=== PATIENT | female | born 1965 | race American Indian/Alaskan Native ===

== ENCOUNTER 2017-01-22 09:38 | Outpatient (CLI) | payer OTHER | END 2017-01-22 09:39 | disposition home or self-care (01) | LOC: LABHHL 09:38 | PROVIDERS: ATTEND Surgery | DX: N60.91 Unspecified benign mammary dysplasia of right breast (principal); N63 Unspecified lump in breast; R92.0 Mammographic microcalcification found on diagnostic imaging of breast | CPT/HCPCS: 88305; 88341; 88342 ==

== ENCOUNTER 2017-02-17 06:26 | Day surgery (SDC) | payer OTHER ==
[~2017-02-17 06:26] MED LIST: ANCEF/STERILE WATER 2 GM/20 ML 2 GM/20 ML SYRINGE IV NR; ANCEF/STERILE WATER 2 GM/20 ML IV NR; MARCAINE 0.25% INFILTRATI ONE; WATER FOR IRRIG STERILE IR ONE; XYLOCAINE 1% 20 mL INFILTRATI ONE
[2017-02-17] MEDS ORDERED: XYLOCAINE 1% 20 mL ONE ×2 (07:37→12:30)
--- NOTE | 2017-02-17 07:58 | Anesthesia Day of Surgery ---
Anesthesia Day of Surgery - Day of Surgery Patient Examined: Yes Patient H&P Reviewed: Yes Patient is NPO: Yes
--- NOTE | 2017-02-17 07:59 | Anesthesia Consultation ---
Anesthesia Consult and Med Hx Date of service: 02/17/17 - Airway Anesthetic Teeth Evaluation: Good ROM Head & Neck: Adequate Mental/Hyoid Distance: Adequate Mallampati Class: Class II Intubation Access Assessment: Probably Good - Pulmonary Exam CTA: Yes - Cardiac Exam Cardiac Exam: RRR - Pre-Operative Health Status ASA Pre-Surgery Classification: ASA2 Proposed Anesthetic Plan: MAC - Pulmonary Hx Smoking: Yes (1pk/week x 30yrs) - Cardiovascular System Hx Hypertension: Yes (PCP PUT ON MEDICATION 02/09/17; NEW DIAGNOSIS) - Central Nervous System Hx Back Pain: Yes Hx Psychiatric Problems: No - Other Systems Hx Alcohol Use: Yes (OCCASIONALLY) Hx Substance Use: No Hx Cancer: Yes
[2017-02-17] MEDS ORDERED: LACTATED RINGERS 1,000 ML IV SCH (08:00)
[2017-02-17] MEDS ORDERED: DILAUDID IV PRN (08:50)
[2017-02-17] MEDS ORDERED: VERSED IV NR (09:00)
[2017-02-17] MEDS ORDERED: PEPCID PO NR (09:00)
--- NOTE | 2017-02-17 09:11 | Mammography Report ---
Right breast the localization procedure. Procedure: The patient's prior images were reviewed. The biopsy clip placed at the time of stereotactic biopsy is discordant position related to the previously described calcifications. The skin surface was cleaned with Betadine and local anesthetic was injected in the skin. Using mammographic guidance Based on the location of increased radiodensity at the site of the previous microcalcifications, 7.5 cm Claros needle was placed into the breast. There appears to be a couple of very faint microcalcifications at this site. The hookwire was left in place at the site of the calcifications. The patient for the procedure well clinically and was sent to the OR in satisfactory condition.
[2017-02-17] MEDS ORDERED: ZOFRAN IV PRN ×2 (10:00→15:00)
[2017-02-17] MEDS ORDERED: SUBLIMAZE ONE (12:16)
[2017-02-17] MEDS ORDERED: XYLOCAINE MPF 2% ONE (12:16)
[2017-02-17] MEDS ORDERED: DIPRIVAN 10 MG/ML IV ONE (12:17)
[2017-02-17] MEDS ORDERED: MARCAINE 0.25% INFILTRATI ONE ×2 (12:31→13:14)
[2017-02-17] MEDS ORDERED: LACTATED RINGERS 1,000 ML ONE (13:09)
[2017-02-17] MEDS ORDERED: WATER FOR IRRIG STERILE IR ONE (13:14)
[2017-02-17] MEDS ORDERED: XYLOCAINE 1% 20 mL INFILTRATI ONE (13:14)
[2017-02-17] MEDS ORDERED: DECADRON ONE (13:38)
[2017-02-17] MEDS ORDERED: ZOFRAN ONE (13:38)
[2017-02-17] MEDS ORDERED: ePHEDrine SULFATE ONE (13:42)
--- NOTE | 2017-02-17 14:19 | Mammography Report ---
Specimen radiograph. Findings: A single specimen radiograph was obtained. The original biopsy clip at the time of stereotactic biopsy had migrated and thus is not seen, as expected. It appears that the area of interest is included within the specimen. No definite calcifications are identified.
--- NOTE | 2017-02-17 14:25 | Short Stay Summary ---
Short Stay Documentation Date of service: 02/17/17 - History H&P: obtained from office - Allergies and Medications Current Medications: Allergies hydrocodone Adverse Reaction (Verified 02/11/17 12:50) Swelling Home Medications Medication Instructions Recorded Confirmed Last Taken Type Gabapentin [Neurontin] 100 mg PO QHS PRN 02/11/17 02/17/17 02/16/17 23:00 History Naproxen [Naproxen TAB] 250 mg PO PRN PRN 02/11/17 02/17/17 02/12/17 23:00 History amLODIPine [Norvasc] 5 mg PO DAILY 02/11/17 02/17/17 02/17/17 04:30 History Ibuprofen [Motrin 800 MG tab] 800 mg PO Q8HR PRN #30 tablet 02/17/17 Unknown Rx Active Medications Hydromorphone HCl (Dilaudid) 0.5 mg IV Q10MIN PRN PRN Reason: Pain , Severe (7-10) Stop: 02/20/17 14:18 Cefazolin Sodium (Ancef/Sterile Water 2 Gm/20 Ml) 2 gm in 20 mls @ 80 mls/hr IV PREOP NR PRN Reason: Protocol Stop: 02/17/17 21:00 Lactated Ringer's (Lactated Ringers) 1,000 mls @ 75 mls/hr IV DIRECT LULA Last Admin: 02/17/17 09:21 Dose: 75 mls/hr Midazolam HCl (Versed) 2 mg IV PREOP NR Stop: 02/17/17 23:59 Last Admin: 02/17/17 11:49 Dose: 2 mg Ondansetron HCl (Zofran) 4 mg IV ONCE PRN PRN Reason: Nausea And Vomiting Stop: 02/17/17 14:18 Oxycodone/Acetaminophen (Percocet 5/325) 1 tab PO ONCE PRN PRN Reason: Pain, Moderate (4-6) Stop: 02/17/17 14:18 - Brief post op/procedure progress note Date of procedure: 02/17/17 Pre-op diagnosis: Right breast ADH Post-op diagnosis: same Procedure: Right needle localization excisional biopsy Anesthesia: GETA Findings: Radiograph specimen with wire present Surgeon: SHANA SALAZAR Estimated blood loss: minimal Pathology: list (right breast excisional biopsy) Specimen disposition: to lab Condition: stable - Disposition Condition at discharge: Good Disposition: DC-01 TO HOME OR SELFCARE Short Stay Discharge Plan Activity: other (no heavy lifting) Diet: regular Wound: other (keep incision clean and dry and may shower in 24 hours; no baths, pools or lakes; do not rub or scrub incision) Follow up with: ANDER MANE MD [Primary Care Provider] - 7 Days SHANA SALAZAR MD [Staff Physician] - 7 Days Prescriptions: Ibuprofen [Motrin 800 MG tab] 800 mg PO Q8HR PRN #30 tablet PRN Reason: Pain
--- NOTE | 2017-02-17 14:33 | Operative Report ---
Operative Report Operative Report: Date of procedure: 02/17/2017 Pre-operative diagnosis: Right breast atypical ductal hyperplasia Post-operative diagnosis: Same Procedure name(s): Right needle localization excisional biopsy Surgeon: Betty Torres M.D. Anesthesia: Gen. Findings: Wire present within regress specimen Complications: None Drains: None Estimated blood loss: Minimal Disposition: PACU in good condition Indications for operative procedure: This is a 52-year-old with [place] lady with recent abnormal mammogram of suspicious microcalcifications of the upper outer quadrant. Patient underwent a right stereotactic breast biopsy with findings of atypical ductal hyperplasia with surgical recommendations for excisional biopsy. Patient wished to proceed with the above procedure. Procedure in detail: Radiology placed wire to localize the area of concern. Patient was then taken to the operating room and was laid supine. Gen. anesthesia was administered. The right breast was prepped and draped in the normal sterile operative fashion. The wire was identified. Skin incision was made with a 15 blade knife of the upper outer quadrant with dissection taken down to the subcutaneous tissues. First began with raising of the superior flap with removal of the wire from the skin and taken down posteriorly to the pectoralis muscle, followed by raising of the medial flap, inferior flap and lateral flap with dissection taken down posteriorly to the pectoralis muscle. The area of concern was appropriately removed, marked and sent to pathology. Radiograph breast specimen with wire present within area of concern. Hemostasis was noted. Breast cavity was irrigated and suctioned. The subcutaneous tissues were approximated and closed using an interrupted 3-0 Vicryl and skin brought together and closed using a running 4-0 Monocryl and skin affix. She tolerated surgery very well and was awakened from anesthesia without any complications and transferred to PACU in good condition.
--- NOTE | 2017-02-17 14:42 | Post Anesthesia Evaluation ---
- Post Anesthesia Evaluation Patient Participated: Yes Airway Patent: Yes Stable Respiratory Function: Yes Nausea/Vomiting: No Temp > 96.8F: Yes Pain Manageable: Yes Adequeate Hydration: Yes Anesthesia Complications: No
[2017-02-17] MEDS ORDERED: PERCOCET 5/325 PO PRN (15:00)
[2017-02-17] MEDS: DILAUDID IV PRN ×2 (15:11→15:23)
[2017-02-17 19:00] VITALS: BP 118/72
== END 2017-02-17 16:45 | disposition home or self-care (01) ==
LOC: OR 06:26
PROVIDERS: ATTEND Surgery
DX: N60.91 Unspecified benign mammary dysplasia of right breast (principal); F17.210 Nicotine dependence, cigarettes, uncomplicated; I10 Essential (primary) hypertension; Z88.5 Allergy status to narcotic agent; Z72.89 Other problems related to lifestyle; Z98.890 Other specified postprocedural states; Z90.710 Acquired absence of both cervix and uterus; Z85.41 Personal history of malignant neoplasm of cervix uteri; Z79.899 Other long term (current) drug therapy; Z80.3 Family history of malignant neoplasm of breast
CPT/HCPCS: 19125; 19281; 76098; 88307; J0690; J1100; J1170; J2250; J2405; J2704; J3010; J7120

== ENCOUNTER 2017-04-09 12:57 | Outpatient (CLI) | payer OTHER ==
--- NOTE | 2017-04-15 13:22 | Magnetic Resonance Report ---
BILATERAL BREAST MRI WITHOUT AND WITH CONTRAST: 04/09/17 12:57:00 CLINICAL: Status post right surgical excision for ADH 02/17/17. Negative surgical margins. COMPARISON:01/01/17 bilateral screening mammogram.. TECHNIQUE: Axial 1.0-mm T1 without, axial high resolution 2.0-mm T2 and axial 1.0-mm dynamic Vibrant high-resolution postcontrast T1 fat saturation sequences on a 1.5 Faith magnet. The examination was performed with an 8 channel dedicated [place] breast coil. Post processing with CAD and subtraction was performed on an [employer] workstation. 14.0 cc of Multihance was injected without incident in a right wrist vein for the contrast portion of the exam. Consent was obtained prior to the administration of the contrast. FINDINGS: Right: Mild background parenchymal enhancement. A postsurgical seroma in the upper outer quadrant measures 3.1 x 1.3 x 2.7 cm. Mild enhancement at the margins of the seroma. Enhancement the posterior margin of the seroma extends to the lateral aspect of the right pectoral muscle and a focus of abnormal enhancement in the pectoral muscle measures 3.9 x 2.7 the 1.9 mm. It demonstrates heterogeneous enhancement with mixed kinetics, 144% peak enhancement and 36% type III washout. No mass and no other suspicious enhancement of the right breast. No suspicious right axillary or right internal mammary lymph nodes. Left: Mild background parenchymal enhancement. No mass or suspicious enhancement of the left breast. No suspicious left axillary or left internal mammary lymph nodes. IMPRESSION: Status post benign right surgical excision. No mass or suspicious lesion of either breast. However, a probably benign focus of abnormal enhancement in the right pectoral muscle. This probably is probably benign enhancement related to the recent surgery. Recommend a followup breast MRI in six months to reevaluate this focal enhancement of the right pectoral muscle. RIGHT BI-RADS 3 - - Probably Benign LEFT BI-RADS 1 -- Negative
== END 2017-04-09 12:58 | disposition home or self-care (01) ==
LOC: SPVIMAG 12:57
PROVIDERS: ATTEND Surgery
DX: N60.81 Other benign mammary dysplasias of right breast (principal); N64.89 Other specified disorders of breast; N64.4 Mastodynia; C53.9 Malignant neoplasm of cervix uteri, unspecified; Z80.3 Family history of malignant neoplasm of breast
CPT/HCPCS: 0159T; A9577; C8908; 77059

== ENCOUNTER 2018-04-08 08:16 | Outpatient (CLI) | payer OTHER ==
--- NOTE | 2018-04-13 16:16 | Magnetic Resonance Report ---
BILATERAL BREAST MRI WITHOUT AND WITH CONTRAST: 04/08/18 08:16:00 CLINICAL: History of right ADH and status post right surgical excision with negative margins 02/17/17. The previous MRI demonstrated focal enhancement of the right pectoral muscle. COMPARISON:04/09/17 MRI and 03/31/18 bilateral screening mammogram. TECHNIQUE: Axial 1.0-mm T1 without, axial high resolution 2.0-mm T2 and axial 1.0-mm dynamic Vibrant high-resolution postcontrast T1 fat saturation sequences on a 1.5 Faith magnet. The examination was performed with an 8 channel dedicated [place] breast coil. Post processing with CAD and subtraction was performed on an [employer] workstation. 15.0 cc of Multihance was injected without incident for the contrast portion of the exam. Consent was obtained prior to the administration of the contrast. FINDINGS: Right: Minimal background parenchymal enhancement. No mass or suspicious enhancement. The previously described postsurgical seroma has resolved and the previously described focal enhancement of the right pectoral muscle has resolved. No suspicious lymph nodes. Left: Minimal background parenchymal enhancement. No mass or suspicious enhancement. No suspicious lymph nodes. IMPRESSION: Negative study. BI-RADS 1 - - Negative
== END 2018-04-08 08:17 | disposition home or self-care (01) ==
LOC: SPVIMAG 08:16
PROVIDERS: ATTEND Surgery
DX: N60.81 Other benign mammary dysplasias of right breast (principal); I10 Essential (primary) hypertension; F17.210 Nicotine dependence, cigarettes, uncomplicated; Z90.89 Acquired absence of other organs; Z90.710 Acquired absence of both cervix and uterus
CPT/HCPCS: A9577; C8908; 77059